=== PATIENT | male | born 1960 | race Caucasian/White ===

== ENCOUNTER → 2016-09-16 | Outpatient (CLI) | payer OTHER ==
[~2016-09-16] VITALS: Ht 180.3 cm; Wt 83.9 kg
[~2016-09-16] MED LIST: AMBIEN 10 MG TA10 MG PO; ATORVASTATIN CA80 MG PO; GRALISE600 MG PO; HYDROCODON-ACE1 EAC5 PO; HYDROCODON-ACE1 EAC7 PO; HYDROCODON-ACE1 EAC8 PO; HYDROCODON-ACE1 EACH PO; LIDODERM 5%1 PATCH TOP; LISINOPRIL5 MG PO; LYRICA 50 MG50 MG PO; MEDROLDOSEPACK PO; NEURONTIN 300300 M1 PO; NORVASC5 MG PO; XANAX 0.5 MG0.5 MG PO
--- NOTE | ~2016-09-16 | HPC ---
[facility] [place] [address] PAIN MANAGEMENT CONSULTATION Name: SANA CHAIREZ Room #: REG [facility] [id number] Admission: 09/16/16 Attend Phys: Lisa Gu MD Discharge: Date of : 62 Report #: [id number] THIS REPORT FOR: //name// CC: Chaz Gu DATE OF SERVICE: 09/16/2016 FOLLOWUP COMPLAINT: I just got back from [place] and I have to go to [place] tomorrow. FOLLOWUP HISTORY: The patient is a 55-year-old gentleman who has been followed in the pain clinic because of chronic pain involving his low back area. He suffers from lumbar radiculopathy. He has undergone epidural steroid injections in the past and found that these have been beneficial. At this juncture, he has just returned to the [place] from a work related trip. He is scheduled tomorrow to hit for [employer] for another extended amount of time. As you recall, he works with [employer] some other large [employer]. He finds that flying on the airplane is quite miserable and problematic given his back pain. He feels that use of hydrocodone and Gralise 600 mg daily is helpful. He would like to have these medications renewed. He will anticipate the possibility of an epidural steroid injection when he returns home. He has had no complications from his medications. PHYSICAL EXAMINATION: Blood pressure 128/98, pulse 72, respiratory rate 20, room air saturation is , height 5 feet 11 inches, weight 180 pounds. BMI is 25.8. The patient has pain and discomfort in the lower portion of his back with pain down in the "tailbone" area. He also has bilateral leg pain, which radiates down involving the L5-S1 distribution. He notes that sitting, standing and travel exacerbate his discomfort. He rates it as a 6/10 at this point. IMPRESSION: Lumbar radiculopathy, treated with epidural steroid injections in the past. PLAN: The patient is scheduled to leave for [place] tomorrow and will follow up in the near future for additional treatment. A script for Gralise 600 mg 1 p.o. q. day and hydrocodone 10/325 one p.o. up to 4 times per day has been written. He will call us if he has any problems with his medications. We would like to thank you for letting us participate in his care. We hope he continues to improve. By: [id number] Lisa Gu MD /fredi
[2016-09-16 11:01] VITALS: BP 128/98
== END | disposition home or self-care (01) ==
LOC: PAIN 07:05
DX: M54.16 Radiculopathy, lumbar region (principal); G89.29 Other chronic pain

== ENCOUNTER → 2017-01-01 | Outpatient (CLI) | payer OTHER ==
[~2017-01-01] VITALS: Ht 182.9 cm; Wt 85.2 kg
--- NOTE | ~2017-01-01 | HPC ---
[facility] [place] [address] PAIN MANAGEMENT CONSULTATION Name: SANA CHAIREZ Room #: REG DORIS Carleen#: [id number] Admission: 01/01/17 Attend Phys: Lisa Gu MD Discharge: Date of : 62 Report #: [id number] THIS REPORT FOR: //name// CC: Chaz Gu DATE OF SERVICE: 01/01/2017 FOLLOWUP COMPLAINT: Described been out of the country. I would like to give my medications and would get an injection in the future. FOLLOWUP HISTORY: The patient is a 56-year-old gentleman who has been seen in the pain clinic as you recall, he has lumbar radiculopathy. He undergoes on epidural steroid injections. They have been helpful. He has recently returned to the [place]. He was in [place]. He is somewhat time lagged/jet lagged at this juncture. He just arrived this morning. He has come to the pain clinic for medications. He is scheduled to live in the near future on another venture out of the country for his country ____. He still feels that Gralise 600 mg is quite helpful. He has had no complications with use of his medications. PHYSICAL EXAMINATION: Blood pressure 130/92, pulse 89, respiratory rate 16, room air saturation 97. Height 6 feet, weight 187 pounds, BMI is 25.5. Continues to have pain and discomfort, radiating down into tailbone area and into the L5-S1 distribution. IMPRESSION: History of lumbar radiculopathy treated with epidural steroid injections with improvement. RECOMMENDATION: The patient will follow up in the future after his work schedule allows. At that point, we will proceed with a lumbar epidural steroid injection to help control the pain and discomfort. We would like to thank you for letting us participate in his care. We hope he continues to improve. A script for Corwith one p.o. q.i.d., Gralise 600 mg at bedtime and Xopenex 10 mg at bedtime has been written. <ELECTRONICALLY SIGNED> By: Lisa Gu MD 01/15/17 0844 [id number] Lisa Gu MD /[facility]
[2017-01-01 10:52] VITALS: BP 130/92
== END | disposition home or self-care (01) ==
LOC: PAIN 07:23
DX: M54.16 Radiculopathy, lumbar region (principal)

== ENCOUNTER → 2017-03-24 | Outpatient (CLI) | payer OTHER ==
[~2017-03-24] VITALS: Ht 182.9 cm; Wt 86.1 kg
--- NOTE | ~2017-03-24 | HPC ---
[facility] [place] [address] PAIN MANAGEMENT CONSULTATION Name: SANA CHAIREZ Room #: REG DORIS Carleen#: [id number] Admission: 03/24/17 Attend Phys: Lisa Gu MD Discharge: Date of : 62 Report #: [id number] THIS REPORT FOR: //name// CC: Chaz Gu DATE OF SERVICE: 03/24/2017 FOLLOWUP COMPLAINT: "I just got back into the [place] and I am here for about 4 days. Had pain radiating down into my back, legs again." FOLLOWUP HISTORY: The patient is a 56-year-old gentleman who has been seen in the pain clinic. He suffers from lumbar radiculopathy. He experiences pain, which radiates down the posterior portion of his legs. [place]. At this juncture, he is having pain and discomfort radiating down to his lower back. He has experienced pain and discomfort, which he describes as 6/10. He frequently is on a plane, and somewhat in confined situations because of the small areas of most planes seats. He feels that his current medications are helpful. He would like to undergo another epidural steroid injection. He feels that the gabapentin and Corder are helpful. He is taking them as prescribed. PHYSICAL EXAMINATION: VITAL SIGNS: Blood pressure 130/92, pulse 89, respiratory rate 16, room air saturation 97%. HEENT: Unremarkable. NECK: Without JVD. HEART: Regular rate. ABDOMEN: Nontender. MUSCULATURE: Complains of some soreness in the lower extremity down in the posterior portion of his legs. Muscle strength is judged to be 5/5. NEUROLOGIC: Has a change in sensations in the L5-S1 with numbness and tingling in the L5-S1 distribution bilaterally. IMPRESSION: 1. History of lumbar radiculopathy, which improved with epidural steroid injections. 2. Lumbar radicular pain improved with use of Gralise with no complications. RECOMMENDATIONS: We discussed treatment options with the patient. We will continue with his current use of Gralise. We have discussed use of opioid medication and the possible complications, which could include addiction and tolerance. The patient is aware of these. He feels overall that these [address] [address] PAIN MANAGEMENT CONSULTATION Name: SANA CHAIREZ Room #: REG DORIS Durant#: [id number] Admission: 03/24/17 Attend Phys: Lisa Gu MD Discharge: Date of : 62 Report #: [id number] medications are helpful. He is not having any problems with them and is taking them as prescribed. He keeps them in a controlled environment. We talked about epidural steroid injection. Risks and benefits of the procedure were again reviewed. They could include but are not limited to infection, increased muscle soreness, headache, bleeding, and nerve trauma. The patient elects to proceed. PROCEDURE NOTE: The patient was placed in the prone position. Fluoroscopy was used to identify the L5-S1 area. This area had been sterilely prepped with Betadine and infiltrated with 0.25% bupivacaine. Total of 80 mg Depo-Medrol, 40 mg triamcinolone and 2 mL of 0.25% bupivacaine was injected. The patient tolerated the procedure well. A prescription for Ambien 10 mg at bedtime and Corder 10 mg 1 p.o. q.i.d. as well as gabapentin 600 mg daily has been written. The patient will call us if he has any problems with his medications. We would like to thank you for letting us participate in his care. We hope he continues to improve. <ELECTRONICALLY SIGNED> By: Lisa Gu MD 03/26/17 0806 [id number] [id number] Lisa Gu MD /[facility]
[2017-03-24 08:48] VITALS: BP 145/108
== END | disposition home or self-care (01) ==
LOC: PAIN 06:35
DX: M54.16 Radiculopathy, lumbar region (principal); G89.29 Other chronic pain; Z79.891 Long term (current) use of opiate analgesic; Z79.899 Other long term (current) drug therapy

== ENCOUNTER → 2017-10-22 | Outpatient (CLI) | payer OTHER ==
[~2017-10-22] VITALS: Ht 182.9 cm; Wt 87.7 kg
[~2017-10-22] MED LIST changes: +SINGULAIR 10 MG10 M1 PO
--- NOTE | ~2017-10-22 | HPC ---
[facility] [place] [address] [place] [address] PAIN MANAGEMENT CONSULTATION Name: SANA CHAIREZ Room #: REG DORIS Carleen#: [id number] Admission: 10/22/17 Attend Phys: Lisa Gu MD Discharge: Date of : 62 Report #: [id number] THIS REPORT FOR: //name// CC: Chaz Gu DATE OF SERVICE: 10/22/2017 FOLLOWUP COMPLAINT: "Here for medication renewal. I have just returned from [facility]. I am scheduled to leave tomorrow for [place]." FOLLOWUP HISTORY: The patient is a 56-year-old gentleman who has been followed in the Pain Clinic. 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 He has just returned on a "red-eye flight"; it is currently midnight in [facility]. He is feeling tired and sleepy. He is scheduled to leave on a flight to [place] in about 2 days. He finds that his medications of Gralise were helpful. Because the medication is to be taken in the evening, it has been somewhat difficult to stay on a regimen which is tolerable. He has stopped taking the Gralise because of the fluctuation in time zones in which he has been living. He feels that his Ambien medication and [place] are helpful. He would like to have these medications renewed. He will consider possibility of an epidural steroid injection in the future. The patient finds that the constant fluctuation from time zone is quite distressing. He is having difficulty remaining in his current job secondary to the chronic time zone changes. He is not sure that he can continue at this current pace in this job position. ALLERGIES: No known drug allergies. CURRENT MEDICATIONS: Singulair 10 mg at bedtime, Ambien 10 mg p.r.n., hydrocodone 10/325s one p.o. q. four hours; Gralise/gabapentin 600 mg with meals, the patient has truncated use of this medication secondary to the constant changing of his time zones; Lipitor 80 mg, alprazolam 0.5 mg b.i.d., and Norvasc 5 mg daily. PAIN CLINIC ASSESSMENT: 1. History of osteoarthritis: The patient has some arthritic changes in his low back. 2. Height 6 feet, weight 193 pounds, BMI is 26.2. 3. Vital signs: Blood pressure 139/93, pulse 93, respiratory rate is 16, room air saturation 97%. 4. Pain intensity: 7-8. 5. Fall risk: The patient has not fallen in the last 3 months. 6. Blood thinner: The patient is not on a blood thinning medication. 7. Hypertension: The patient is being treated for hypertension. [address] [address] PAIN MANAGEMENT CONSULTATION Name: CONTRERASSANA ADILIAMIRA Room #: REG CLI [facility]#: [id number] Admission: 10/22/17 Attend Phys: Lisa Gu MD Discharge: Date of : 62 Report #: [id number] 8. Opioid therapy greater than 6 weeks: The patient is receiving his opioid medications from one source, the Pain Clinic. 9. Risk assessment tool. 10. Opioid risk is low. 11. Functional assessment tool. 12. Drug use: The patient denies use of recreational drugs. 13. Tobacco: The patient has never smoked. 14. Alcohol: The patient occasionally uses alcoholic beverages. PHYSICAL EXAMINATION: GENERAL: The patient is a well-developed white male. He appears his stated age. He is alert and oriented x 3. His affect is appropriate. Speech is fluent. The patient does look sleepy. He states that he has just returned from [place] on a red-eye; it currently is midnight in [facility] which is where he came from. HEENT: Normocephalic, atraumatic. Extraocular eye muscles intact. Sclerae nonicteric. Mucous membranes are moist. Hearing is within normal limits. NECK: Without JVD or adenopathy. Good range of motion, flexion and extension, left and right lateral bending unremarkable. HEART: Regular rate. Normal S1, S2. ABDOMEN: Nontender. CHEST: Clear to auscultation, without rhonchi or rales. MUSCULOSKELETAL: Without significant scoliosis, kyphosis, or lordosis. Upper extremity muscle strength is judged to be 5/5 for the muscle groups. Bulk and symmetry is noted without sensory change. Sensory exam in the lower extremity shows some pain and discomfort radiating down into the patient's legs. He rates it as a 7/10. Muscle strength in the lower extremities judged to be 5/5. IMPRESSION: History of lumbar radicular pain, improves with epidural steroid injection. RECOMMENDATION: The patient is going to leave within the next 48 hours and go to [place]. At this juncture, he would like to have his medications renewed. He is holding off taking the gabapentin because he is unable to take it on a regular basis. He feels that sometimes this medication may make a change in his sensorium bit and feels that the [place] and Ambien are helpful. He would like to have these medications renewed. We will write for his medications. He will follow up in the near future. We would like to thank you for letting us participate in his care. We hope he continues to improve. By: [id number] MD rubio Roy
[2017-10-22 10:10] VITALS: BP 139/93
== END ==
LOC: PAIN 06:31
DX: M54.5 Low back pain (principal); Z79.899 Other long term (current) drug therapy

== ENCOUNTER → 2018-01-03 | Outpatient (CLI) | payer OTHER ==
[~2018-01-03] VITALS: Ht 182.9 cm; Wt 89.8 kg
[2018-01-03 10:23] VITALS: BP 171/108
== END ==
LOC: PAIN 07:12
DX: M54.5 Low back pain (principal); M79.606 Pain in leg, unspecified; M79.605 Pain in left leg; G89.29 Other chronic pain; M53.3 Sacrococcygeal disorders, not elsewhere classified; Z79.899 Other long term (current) drug therapy; Z79.891 Long term (current) use of opiate analgesic

== ENCOUNTER → 2018-02-23 | Outpatient (CLI) | payer OTHER ==
[~2018-02-23] VITALS: Ht 182.9 cm; Wt 90.7 kg
[2018-02-23 08:08] VITALS: BP 150/101
== END ==
LOC: PAIN 05:39
DX: M54.5 Low back pain (principal); M79.604 Pain in right leg; M79.605 Pain in left leg; G89.29 Other chronic pain; Z79.899 Other long term (current) drug therapy

== ENCOUNTER → 2018-03-23 | Outpatient (CLI) | payer OTHER ==
[~2018-03-23] VITALS: Ht 182.9 cm; Wt 91.2 kg
[~2018-03-23] MED LIST changes: +LOSARTAN POTAS100 MG PO; +XANAX1 MG PO
--- NOTE | ~2018-03-23 | HPC ---
[facility] [place] [address] PAIN MANAGEMENT CONSULTATION Name: SANA CHAIREZ Room #: REG DORIS Alvaro.#: [id number] Admission: 03/23/18 Attend Phys: Lisa Gu MD Discharge: Date of : 62 Report #: [id number] THIS REPORT FOR: //name// CC: Chaz Gu DATE OF SERVICE: 03/23/2018 CHIEF COMPLAINT: Here for an epidural injection. HISTORY: The patient is a 57-year-old gentleman who has been followed in the Pain Clinic because of chronic pain in the low back area as well as pain in his leg. As you may recall, works for [employer]. He flies international frequently. He has just returned to the [place]. He is just arriving home from a 30-hour trip. He is quite tired. He has returned to the Pain Clinic with a desire to undergo an epidural steroid injection. These have been helpful for him in the past. He rates his pain as a 7/10. He would like to proceed with an epidural steroid injection. Finds that his medications of hydrocodone and Ambien in conjunction with release continued to be helpful. ALLERGIES: No known drug allergies. CURRENT MEDICATIONS: Singulair 10 mg at bedtime, Ambien 10 mg p.r.n., hydrocodone 10/325 one p.o. 4-6 hours, Gralise/gabapentin 600 mg with meals, Lipitor 80 mg, alprazolam 0.5 mg b.i.d., and Norvasc 5 mg daily. PAIN CLINIC ASSESSMENT/PQRS: 1. History of osteoarthritis. The patient has some arthritic changes in the low back area. He is not being treated for rheumatoid arthritis. 2. Height 5 feet 6 inches, weight 201 pounds, BMI is 27.3. 3. Vital signs: Blood pressure 139/102, pulse 72, respiratory rate 16, room air saturation 95%. 4. Pain intensity 10/05. 5. Fall risk. The patient has not fallen in the last 3 months. 6. Blood thinner. The patient is not on a blood thinning medication. 7. Hypertension. The patient has been treated for hypertension. 8. Opioids greater than 6 weeks. The patient had received this medication from one source, the Pain Clinic. 9. Risk assessment tool, low for opioid use. 10. Functional assessment tool. 11. Recreational drug use. The patient denies use of recreational drugs. 12. Tobacco: The patient has never smoked. 13. Alcohol. The [place] [address] PAIN MANAGEMENT CONSULTATION Name: SANA CHAIREZ Room #: REG [facility] Carleen#: [id number] Admission: 03/23/18 Attend Phys: Lisa Gu MD Discharge: Date of : 62 Report #: [id number] PHYSICAL EXAMINATION: GENERAL: The patient is a well-developed, well-nourished white male. Appears his stated age. He is alert and oriented x 3. Affect is appropriate. Speech is fluent. HEENT: Normocephalic and atraumatic. Extraocular eye muscles intact. Sclerae nonicteric. The patient does looks sleepy. He has just gotten off the plane. He has been traveling for 30 hours. HEENT: Normocephalic and atraumatic. Extraocular eye muscles intact. Sclerae nonicteric. Mucous membranes are moist. NECK: Without adenopathy or JVD. Good motion. HEART: Regular rate. S1, S2. ABDOMEN: Nontender. Bowel sounds present. CHEST: Clear to auscultation without rhonchi or rales. MUSCULOSKELETAL: Without significant scoliosis, kyphosis or lordosis. The patient has pain and discomfort in lower extremity in the L5-S1 area with pain primarily on the left side in the L5-S1 dermatomal distribution. IMPRESSION 1. L5-S1 dermatomal radicular pain. 2. Hypertension. 3. Chronic traveling through time zones -- the patient feels that he may need to decrease traveling in the future. RECOMMENDATIONS: We discussed the treatment options with the patient. Risks and benefits of an epidural steroid injection were discussed. Possible complications of the procedure were reviewed. They include, but are not limited to infection, worsening of pain, no improvement in pain, bleeding, nerve damage and paralysis. The patient elects to proceed. PROCEDURE NOTE: The patient was assisted in getting on the examination table. Fluoroscopy using anterior, posterior as well as lateral viewing were implemented. The patient's back was sterilely prepped with a Betadine solution. A 0.25% bupivacaine using a midline approach in the left paramedian direction was implemented. A 17-gauge Tuohy with loss of resistance technique was used to gain access to the epidural space. There was no CSF, heme or paresthesia. Aspiration was negative. A total of 80 mg Depo-Medrol, 40 mg triamcinolone and 2 mL of 0.25% bupivacaine was injected. The patient tolerated the procedure well. There were no complications. A total of 11 seconds fluoroscopy time was used. The patient's pain decreased from 7-0 at the time of discharge. He will follow up in the future as needed. [facility] [address] [place] [address] PAIN MANAGEMENT CONSULTATION Name: SANA CHAIREZ Room #: [facility] [id number] Admission: 03/23/18 Attend Phys: Lisa Gu MD Discharge: Date of : 62 Report #: [id number] We would like to thank you for letting us participate in his care. We hope he continues to improve. By: 22 22 Lisa Gu MD /fredi
[2018-03-23 08:42] VITALS: BP 139/102
== END | disposition home or self-care (01) ==
LOC: PAIN 08:14
DX: M54.16 Radiculopathy, lumbar region (principal); G89.29 Other chronic pain; I10 Essential (primary) hypertension; Z79.891 Long term (current) use of opiate analgesic; Z79.899 Other long term (current) drug therapy

== ENCOUNTER → 2018-06-10 | Outpatient (CLI) | payer OTHER ==
[~2018-06-10] VITALS: Ht 182.9 cm; Wt 93.0 kg
[2018-06-10 10:50] VITALS: BP 108/78
--- NOTE | 2018-06-10 10:50 | NUR ---
Pain Clinic Assessment: 1. History of Osteoarthritis: Not Applicable History of Rheumatoid Arthritis: Not Applicable 2. Height: 6 ft. 0 in. 182.9 cm. Weight: 205.0 lb. oz. 92.988 kg. Patient's BMI: 27.8 3. Vital Signs: BP: 108/78 Pulse: 77 Resp: 18 Temp: 02 Sat: 96 ECG Mon: 4. Pain Intensity: 7 5. Fall Risk: Dizziness: Needs help standing or walking: Fallen in the last 3 months: Fall risk comments: 6. Patient on Blood Thinner: None 7. History of Hypertension: Y 8. Opioid Therapy greater than 6 weeks: Y Opiate Contract Signed: 09/19/15 9. Risk Assessment Tool Provided: Opioid Risk Tool 10. Functional Assessment Tool: HIGH RISK 11. Recreational Drug Use: Never Drug Type: Tobacco Use: Never Smoker Tobacco Type: Amount or Packs/day: How Many Years: Alcohol Use: Yes Frequency: Quant:
--- NOTE | 2018-06-22 08:28 | HPC ---
[facility] [address] [place] [address] PAIN MANAGEMENT CONSULTATION Name: SANA CHAIREZ Room #: REG DORIS Alvaro.#: [id number] Admission: 06/10/18 ������������������ Attend Phys: Lisa Gu MD Discharge: ������������������ Date of : 62 Report #: [id number] THIS REPORT FOR: //name// CC: Chaz Gu DATE OF SERVICE: 06/10/2018 PRIMARY CARE PHYSICIAN: Chaz Meade Jr., MD and Magan Madrigal. HISTORY: The patient is a 57-year-old gentleman who has been followed in the pain clinic. Continues to have back pain that is helped with epidural steroid injections as well as with medications. 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 He finds that all of his traveling continues to be quite hard on his body. He feels that the epidural steroid injections have been beneficial. He feels that his medications are helpful. He is contemplating changing jobs. He feels that he is finding it more and more difficult to continue with his current pace. He has returned today for renewal of his medications. He feels that they are working well. He continues to take them as directed. ALLERGIES: No known drug allergies. CURRENT MEDICATIONS: Singulair 10 mg at bedtime, Ambien 10 mg p.r.n., hydrocodone 10/325 one p.o. q. 4-6 hours, Gralise 600 mg with meals, Lipitor 80 mg, alprazolam 0.5 mg b.i.d., Norvasc 5 mg. PAIN CLINIC ASSESSMENT/PQRS: 1. History of osteoarthritis. The patient has some arthritic changes in his low back area. He has not been treated for rheumatoid arthritis. 2. Height 5 feet 6 inches, weight 205 pounds, BMI is 27.8. 3. Vital signs: Blood pressure 108/78, pulse 77, respiratory rate 18, room air saturation 96%. 4. Pain intensity 10/05. 5. Fall history: The patient has not fallen in the last 3 months. 6. Blood thinner. The patient is not on a blood thinning medication. 7. Hypertension. The patient is being treated for hypertension. 8. Opioids greater than 6 weeks. The patient received medication from one source, pain clinic. 9. Risk assessment tool, low for opioid risk. 10. Functional assessment tool. 11. Recreational drug use. The patient denies use of recreational drugs. 12. Tobacco. The patient does not smoke. 13. Alcohol. The patient [place] [address] PAIN MANAGEMENT CONSULTATION Name: SAAN CHAIREZ [facility] [id number] Admission: 06/10/18 ������������������ Attend Phys: Lisa Gu MD Discharge: ������������������ Date of : 62 Report #: [id number] PHYSICAL EXAMINATION: GENERAL: The patient is a well-developed, well-nourished white male. Appears his stated age. He is alert and oriented x 3. His affect is appropriate. Speech is fluent. ENT is normal. HEENT: Normocephalic, atraumatic. Extraocular eye muscles intact. The patient's eyes are low red. He feels he is still tired and recuperating from his travel. NECK: Supple without adenopathy or JVD. Good range of motion. HEART: Regular rate. S1, S2. ABDOMEN: Nontender. Bowel sounds present. CHEST: Clear to auscultation without rhonchi or rales. MUSCULOSKELETAL: Without significant scoliosis, kyphosis or lordosis. The patient has pain and discomfort in his lower extremity at the L4-L5 distribution with pain that radiates down in this dermatomal distribution. IMPRESSION: 1. L5-S1 dermatomal radicular pain. 2. Hypertension. 3. Chronic sleeping difficulty secondary to traveling to so many time zones. RECOMMENDATIONS: We discussed treatment options with the patient. At this juncture, we will continue with his medications. He feels that things are going reasonably well. He would like to continue with his medications. He is contemplating changing his job. Feels that at age 57 he is having more difficulty with keeping up with this position. His mother is in a nursing setting. She has dementia and is no longer recognizing him. A script for his medications has been written. Ambien 10 mg at bedtime, Barbeau 10/325 one p.o. q.i.d. have been written. The patient will call us if he has any concerns. We would like to thank you for letting us participate in his care. We hope he continues to improve. ��������������������������������������������� <ELECTRONICALLY SIGNED> ���������������������������������������� By: Lisa Gu MD ��������������������������������������������� 06/22/18 0828 0817 1601 Lisa Gu MD /JOSE G
== END ==
LOC: PAIN 06:51
DX: M54.17 Radiculopathy, lumbosacral region (principal); I10 Essential (primary) hypertension; G47.00 Insomnia, unspecified; Z79.899 Other long term (current) drug therapy

== ENCOUNTER → 2018-08-10 | Outpatient (CLI) | payer OTHER ==
[~2018-08-10] VITALS: Ht 182.9 cm; Wt 93.4 kg
--- NOTE | ~2018-08-10 | HPC ---
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 He works for [employer]. There has been a new terrace put in place. 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 He recalls standing when getting off the plane. While lifting his luggage, he felt a pop in his leg. Did note some increased pain in his knee. Over the last few days, he has noted some increased pain and discomfort. He has noticed some swelling from the ankle to the mid portion of his leg. He is walking with a very antalgic gait. States that he has spoken with an Orthopedic doctor. He is scheduled to undergo an MRI of his knee. He would like to have his medications renewed. [place]. He feels that his medications continue to be helpful and would like to have them renewed. ALLERGIES: No known drug allergies. CURRENT MEDICATIONS: Singulair 10 mg at bedtime, Ambien 10 mg p.r.n., hydrocodone 10/325 one p.o. every 4-6 hours, Gralise/gabapentin 600 mg with meals, Lipitor 80 mg, alprazolam 0.5 mg b.i.d., Norvasc 5 mg daily. PAIN CLINIC ASSESSMENT/OSTEOARTHRITIS: 1. The patient has some arthritic changes in his low back. He is not being treated for rheumatoid arthritis. 2. Height 6 feet, weight 206 pounds, and the BMI is 27.9. 3. Vital Signs: Blood pressure 142/106, pulse 85, respiratory rate 16, room air saturation is 95%. 4. Pain intensity 6/10. 5. Fall risk. The patient has not fallen in the last 3 months. 6. Blood thinner. The patient is not on a blood thinning medication. 7. Hypertension. The patient has been treated for hypertension. 8. Opioid greater than 6 weeks. The patient receives medication from one source, the pain clinic. 9. Risk assessment tool, low for opioid use. [address] [address] PAIN MANAGEMENT CONSULTATION Name: SANA CHAIREZ [id number] Admission: 08/10/18 ������������������ Attend Phys: Lisa Gu MD Discharge: ������������������ Date of : 62 Report #: [id number] 10. Functional assessment tool, . 11. Recreational drug use. The patient denies use of recreational drug use. 12. Tobacco: The patient has never smoked. 13. Alcohol. The patient drinks about 6 beverages weekly. PHYSICAL EXAMINATION: GENERAL: The patient is a well-developed, well-nourished white male. Appears his stated age. He is alert and oriented x 3. His affect is appropriate. Speech is fluent. HEENT: Normocephalic, atraumatic. Extraocular eye muscles intact. Sclerae nonicteric. Mucous membranes are moist. NECK: Without adenopathy or JVD. HEART: Regular rate. S1, S2. ABDOMEN: Nontender. Bowel sounds present. CHEST: Clear to auscultation. MUSCULOSKELETAL: Without significant scoliosis, kyphosis or lordosis. The patient has pain in the lower extremity. He has been experiencing pain in the right lower extremity over the last few days. He notes increased swelling and discomfort. He has some pain in the lateral portion of his leg as well as in the posterior portion of his knee. IMPRESSION: 1. History of lumbar radiculopathy, L5-S1, stable at this juncture. 2. New swelling in the right lower extremity. 3. Hypertension. 4. Chronic pain, traveling through time zones. RECOMMENDATIONS: We discussed treatment options with the patient. At this juncture, he is having swelling in his leg. He does fly frequently. The possibility exists of a blood clot in his leg. We will have the patient undergo ultrasound for evaluation. He is scheduled to go to [place] within the next few days. If he does have a blood clot, he probably would not be able to go to [place]. The patient was given a script to undergo ultrasound in the radiology today. He will then follow up with his Ortho doctor in regards to his knee. A script for his medications has been written. He will continue with the medications as prescribed. He will call us if he has any concerns. 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 We would like to thank you for letting us participate in his care. We hope he continues to improve. ��������������������������������������������� ���������������������������������������� By: ��������������������������������������������� [id number] MD LUIS ALBERTO Roy
[2018-08-10 10:12] VITALS: BP 142/106
--- NOTE | 2018-08-10 10:19 | NUR ---
Pain Clinic Assessment: 1. History of Osteoarthritis: Not Applicable History of Rheumatoid Arthritis: Not Applicable 2. Height: 6 ft. 0 in. 182.9 cm. Weight: 206.0 lb. oz. 93.441 kg. Patient's BMI: 27.9 3. Vital Signs: BP: 142/106 Pulse: 85 Resp: 16 Temp: 02 Sat: 95 ECG Mon: 4. Pain Intensity: 6 5. Fall Risk: Dizziness: N Needs help standing or walking: N Fallen in the last 3 months: N Fall risk comments: 6. Patient on Blood Thinner: None 7. History of Hypertension: Y 8. Opioid Therapy greater than 6 weeks: Y Opiate Contract Signed: 09/19/15 9. Risk Assessment Tool Provided: Gualberto 10. Functional Assessment Tool: 11. Recreational Drug Use: Never Drug Type: Tobacco Use: Never Smoker Tobacco Type: Amount or Packs/day: How Many Years: Alcohol Use: Yes Frequency: Weekly Quant: 6
== END ==
LOC: ULTRA 09:59 → PAIN 09:59
DX: M71.21 Synovial cyst of popliteal space [Baker], right knee (principal); M25.461 Effusion, right knee; M54.16 Radiculopathy, lumbar region; G89.29 Other chronic pain; R60.9 Edema, unspecified; I10 Essential (primary) hypertension; Z79.899 Other long term (current) drug therapy

== ENCOUNTER → 2018-12-16 | Outpatient (CLI) | payer OTHER ==
[~2018-12-16] VITALS: Ht 182.9 cm; Wt 88.9 kg
[~2018-12-16] MED LIST changes: +VOLTAREN GEL 1100 G1 TOP
[2018-12-16 10:03] VITALS: BP 130/96
--- NOTE | 2018-12-16 10:11 | NUR ---
Pain Clinic Assessment: 1. History of Osteoarthritis: Not Applicable History of Rheumatoid Arthritis: Not Applicable 2. Height: 6 ft. 0 in. 182.9 cm. Weight: 196.0 lb. oz. 88.905 kg. Patient's BMI: 26.6 3. Vital Signs: BP: 130/96 Pulse: 78 Resp: 16 Temp: 02 Sat: 96 ECG Mon: 4. Pain Intensity: 6 NOW 8-9 AT HS 5. Fall Risk: Dizziness: N Needs help standing or walking: N Fallen in the last 3 months: N Fall risk comments: 6. Patient on Blood Thinner: None 7. History of Hypertension: Y 8. Opioid Therapy greater than 6 weeks: Y Opiate Contract Signed: 09/19/15 9. Risk Assessment Tool Provided: Gualberto 10. Functional Assessment Tool: 11. Recreational Drug Use: Never Drug Type: Tobacco Use: Never Smoker Tobacco Type: Amount or Packs/day: How Many Years: Alcohol Use: Yes Frequency: Quant:
--- NOTE | 2019-01-06 08:26 | HPC ---
[facility] [address] [place] [address] PAIN MANAGEMENT CONSULTATION Name: SANA CHAIREZ Room #: REG DORIS Alvaro.#: [id number] Admission: 12/16/18 Attend Phys: Lisa Gu MD Discharge: Date of : 62 Report #: [id number] THIS REPORT FOR: //name// CC: Chaz Gu DATE OF SERVICE: 12/16/2018 CHIEF COMPLAINT: Here for renewal of medication. HISTORY: The patient is a 58-year-old gentleman who has been followed in the pain clinic. As you recall, he has chronic pain involving his low back and has had some lumbar radicular pain. Epidural steroid injections in the past have been helpful. He does have a quite demanding life. He works for [employer]. 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 He has been having some pain with his knee. He has been evaluated and possibly found to have a Romo's cyst. He also states that there might be a torn meniscus in his knee. Evaluation in the past have been negative for deep venous thrombosis. Pain continues to be quite problematic. ALLERGIES: No known drug allergies. CURRENT MEDICATIONS: Singulair 10 mg at bedtime, Ambien 10 mg p.r.n., hydrocodone 10/325 one p.o. q.4-6 hours, Gralise/gabapentin 600 mg with meals, Lipitor 80 mg, alprazolam 0.5 mg b.i.d., and Norvasc 5 mg daily. PAIN CLINIC ASSESSMENT/PQRS: 1. Osteoarthritis. The patient has some arthritic changes in his low back area. He is not being treated for rheumatoid arthritis. 2. Height 6 feet, weight 196 pounds, BMI is 26.6. 3. Vital signs: Blood pressure 130/96, pulse 78, respiratory rate 16, room air saturation 96%. 4. Pain intensity 6/10, now and 8-9/10 at bedtime. 5. Fall history: The patient has not fallen in the last 3 months. 6. Blood thinner. The patient is not on a blood thinning medication. 7. Hypertension. The patient is being treated for hypertension. 8. Opioids greater than 6 weeks. The patient receives medication from one source the pain clinic. 9. Risk assessment tool, low for opioid use. 10. Functional assessment tool . 11. Recreational drugs. The patient denies use of recreational drugs. 12. Tobacco: The patient has never smoked. 13. Alcohol: The patient occasionally drinks alcoholic beverages. [address] [address] PAIN MANAGEMENT CONSULTATION Name: SANA CHAIREZ Room #: REG CLSam Durant#: [id number] Admission: 12/16/18 Attend Phys: Lisa Gu MD Discharge: Date of : 62 Report #: [id number] PHYSICAL EXAMINATION: GENERAL: The patient is a well-developed, well-nourished white male. Appears his stated age. He is alert and oriented x 3. His affect is appropriate. Speech is fluent. HEENT: Normocephalic, atraumatic. Extraocular eye muscles intact. Sclerae nonicteric. Mucous membranes are moist. NECK: Without adenopathy or JVD. HEART: Regular rate. S1, S2. ABDOMEN: Nontender. Bowel sounds present. CHEST: Clear to auscultation. MUSCULOSKELETAL: Without significant scoliosis, kyphosis, or lordosis. Upper extremity muscle strength is judged to be 5/5 for the major muscle groups in the upper extremity. The patient has some pain and discomfort in the right lower extremity. Notes that this is quite problematic and painful. Has difficulty walking. Notes that there appears at times to be swelling in the lower leg. Swelling is primarily below the knee. He finds that this sometimes waxes and wanes. Circumference of the right calf 15 and approximately 3/4 inches and the left calf approximately 15 inches. The patient has some pain and soreness in the posterior portion of his right knee. IMPRESSION: 1. Right knee pain, possible history of Romo's cyst or meniscus tear. 2. History of lumbar radiculopathy, L5-S1, stable at this juncture. 3. Hypertension. 4. Chronic pain, which is exacerbated while traveling through many time zones. RECOMMENDATIONS: We discussed treatment options with the patient. At this juncture, we will continue with his medications. A script for renewal of his medications has been written. He will continue with the hydrocodone 10 mg 1 p.o. q.i.d. p.r.n. for pain. He will also continue with Ambien 10 mg at bedtime to help with sleep. He finds that Voltaren gel to the upper extremities has been helpful and helping control some of the upper extremity pain and discomfort. He may try the use of Voltaren gel to the posterior portion of his right leg. We would like to thank you for letting us participate in his care. We hope he continues to improve. <ELECTRONICALLY SIGNED> By: Lisa Gu MD 01/06/19 0826 [id number] Lisa Gu MD /PMT
== END ==
LOC: PAIN 06:50
DX: M54.16 Radiculopathy, lumbar region (principal); I10 Essential (primary) hypertension; M25.561 Pain in right knee; Z79.899 Other long term (current) drug therapy

== ENCOUNTER → 2019-02-22 | Outpatient (CLI) | payer OTHER ==
[~2019-02-22] VITALS: Ht 182.9 cm; Wt 91.6 kg
[~2019-02-22] MED LIST changes: +WELLBUTRIN XL150 MG PO
--- NOTE | ~2019-02-22 | HPC ---
[facility] [place] [address] PAIN MANAGEMENT CONSULTATION Name: SANA CHAIREZ Room #: REG DORIS Carleen#: [id number] Admission: 02/22/19 Attend Phys: Lisa Gu MD Discharge: Date of : 62 Report #: [id number] THIS REPORT FOR: //name// CC: Chaz Gu DATE OF SERVICE: 02/22/2019 CHIEF COMPLAINT: Low back pain down in the right leg. HISTORY: The patient is a 58-year-old gentleman who has been followed in the Pain Clinic because of chronic pain. 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 He continues to have pain and discomfort, which is problematic. He has had some problem with his knees. He has had pain in the low back area and has undergone epidural steroid injections and gleaned benefits from these. He returns today indicating that his pain has increased. He rates it as an 8/10. It involves the low back. It radiates down in the lower portion of his right back and into the right leg. Notes that the pain is exacerbated when he is sitting. Notes it improves somewhat with repositioning. He would like to proceed with an epidural steroid injection, which has been helpful in the past. ALLERGIES: No known drug allergies. CURRENT MEDICATIONS: Singulair 10 mg at bedtime, Ambien 10 mg, hydrocodone 10/325 one p.o. q. 4-6 hours, Gralise/gabapentin 600 mg with meals, Lipitor 80 mg, alprazolam 0.5 mg b.i.d., Norvasc 5 mg. PAIN CLINIC ASSESSMENT/PQRS: Osteoarthritis. The patient has some arthritic changes in his low back. He is not being treated for rheumatoid arthritis. PHYSICAL EXAMINATION: GENERAL: The patient is a well-developed, well-nourished white male. Appears his stated age. He is alert and oriented x 3. His affect is appropriate. Speech is fluent. HEENT: Normocephalic, atraumatic. Extraocular eye muscles intact. Sclerae nonicteric. Mucous membranes are moist. NECK: Without adenopathy or JVD. HEART: Regular rate. ABDOMEN: Nontender. LUNGS: Generally clear to auscultation. MUSCULOSKELETAL: Without significant scoliosis, kyphosis or lordosis. The patient has pain and discomfort radiating down in the L5-S1 area of his right leg. Notes some numbness, tingling and weakness associated with this. IMPRESSION: [facility] [address] [place] [address] PAIN MANAGEMENT CONSULTATION Name: SANA CHAIREZ Room #: REG CLI [facility]#: [id number] Admission: 02/22/19 Attend Phys: Lisa Gu MD Discharge: Date of : 62 Report #: [id number] 1. Right lower extremity pain in the L5-S1 area. 2. History of hypertension. 3. Chronic pain exacerbated while traveling through many times zones. 4. 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 RECOMMENDATIONS: We discussed treatment options with the patient. Risks and benefits of an epidural steroid injection were discussed. Possible complications of the procedure, which could include but are not limited to infection, worsening pain, no improvement in pain, nerve damage, spinal headache were discussed with the patient elects to proceed. PROCEDURE NOTE: The patient was taken to the procedure area. He was then assisted in getting on the examination table. His back was sterilely prepped with a Betadine solution at the L5-S1 area. A 0.25% bupivacaine was infiltrated into this area to numb it. A 17-gauge Tuohy with loss of resistance technique was then used to gain access at the L5-S1 area. Aspiration was negative. A total of 80 mg Depo-Medrol, 40 mg triamcinolone and 2 mL of 0.25% bupivacaine was injected. The patient's pain decreased from 8-0 at the time of discharge. A script for renewal of his medications will be written when he needs them. We would like to thank you for letting us participate in his care. We hope he continues to improve. By: [id number] Lisa Gu MD /fredi
[2019-02-22 08:08] VITALS: BP 120/75
--- NOTE | 2019-02-22 08:26 | NUR ---
Pain Clinic Assessment: 1. History of Osteoarthritis: SPINE History of Rheumatoid Arthritis: DENIES 2. Height: 6 ft. 0 in. 182.9 cm. Weight: 202.0 lb. oz. 91.627 kg. Patient's BMI: 27.4 3. Vital Signs: BP: 120/75 Pulse: 79 Resp: 20 Temp: 02 Sat: 97 ECG Mon: 4. Pain Intensity: 8 5. Fall Risk: Dizziness: N Needs help standing or walking: N Fallen in the last 3 months: Y Fall risk comments: 6. Patient on Blood Thinner: None 7. History of Hypertension: Y 8. Opioid Therapy greater than 6 weeks: Y Opiate Contract Signed: 09/19/15 9. Risk Assessment Tool Provided: 9 HIGH RISK 10. Functional Assessment Tool: 11. Recreational Drug Use: Never Drug Type: Tobacco Use: Never Smoker Tobacco Type: Amount or Packs/day: How Many Years: Alcohol Use: Yes Frequency: Daily Quant: BEER
== END | disposition home or self-care (01) ==
LOC: PAIN 02-14 12:11
DX: M54.5 Low back pain (principal); G89.29 Other chronic pain; Z98.890 Other specified postprocedural states; Z79.899 Other long term (current) drug therapy; Z79.891 Long term (current) use of opiate analgesic

== ENCOUNTER → 2019-03-15 | Outpatient (CLI) | payer OTHER ==
[~2019-03-15] VITALS: Ht 182.9 cm; Wt 90.3 kg
[2019-03-15 10:21] VITALS: BP 164/112
--- NOTE | 2019-03-15 10:25 | NUR ---
Pain Clinic Assessment: 1. History of Osteoarthritis: SPINE History of Rheumatoid Arthritis: DENIES 2. Height: 6 ft. 0 in. 182.9 cm. Weight: 199.0 lb. oz. 90.266 kg. Patient's BMI: 27.0 3. Vital Signs: BP: 164/112 Pulse: 109 Resp: 18 Temp: 02 Sat: 96 ECG Mon: 4. Pain Intensity: 5 5. Fall Risk: Dizziness: N Needs help standing or walking: N Fallen in the last 3 months: N Fall risk comments: 6. Patient on Blood Thinner: None 7. History of Hypertension: Y 8. Opioid Therapy greater than 6 weeks: Y Opiate Contract Signed: 09/19/15 9. Risk Assessment Tool Provided: 9 HIGH RISK 10. Functional Assessment Tool: 11. Recreational Drug Use: Never Drug Type: Tobacco Use: Never Smoker Tobacco Type: Amount or Packs/day: How Many Years: Alcohol Use: Yes Frequency: Quant:
--- NOTE | 2019-03-28 14:24 | HPC ---
[facility] [place] [place] [address] PAIN MANAGEMENT CONSULTATION Name: SANA CHAIREZ Room #: REG DORIS PaulaBorisSadieBoris#: [id number] Admission: 03/15/19 Attend Phys: Lisa Gu MD Discharge: Date of : 62 Report #: [id number] THIS REPORT FOR: //name// CC: Chaz Gu DATE OF SERVICE: 03/15/2019 CHIEF COMPLAINT: Have returned for medication renewal. The epidural injection has helped. HISTORY: The patient is a 58-year-old gentleman who has been followed in the pain clinic. As you recall, he has chronic back pain. He was seen in January. He underwent an epidural steroid injection in the low back area. He has found these beneficial in the past. He has noticed that his pain has improved since the last injection. He has returned today for renewal of his medications. He has had no complications from the procedure. He continues to work for [employer]. He is going to [place] in the near future. Again, these long flights on airplanes can be problematic and exacerbate his pain and discomfort. ALLERGIES: No known drug allergies. CURRENT MEDICATIONS: Singulair 10 mg at bedtime, Ambien 10 mg, hydrocodone 10/325 one p.o. 4-6 hours p.r.n./Gralise 600 mg with meals, Lipitor 80 mg, alprazolam 0.5 mg b.i.d., Norvasc 5 mg. PAIN CLINIC ASSESSMENT AND PQRS: 1. Osteoarthritis. The patient has some arthritic changes in his back. He has some arthritic change in his knee. He is not being treated for rheumatoid arthritis. 2. Height 6 feet 0, weight 199 pounds, BMI is 27. 3. Vital Signs: Blood pressure 164/112, pulse 109, respiratory rate 18, room air saturation 96%. 4. Pain intensity 5/10. 5. Fall history: The patient has not fallen in the last 3 months. 6. Blood thinner. The patient is not on a blood thinning medication. 7. Hypertension. The patient is being treated for hypertension. 8. Opioids greater than 6 weeks. The patient received medications from one source the pain clinic. 9. Risk assessment tool, moderate for opioid use. 10. Functional assessment tool . 11. Recreational drugs. Denies use of recreational drugs. 12. Tobacco: The patient has never smoked. 13. Alcohol: The patient occasionally drinks alcoholic beverages. [facility] [address] [place] [address] PAIN MANAGEMENT CONSULTATION Name: SANA CHAIREZ Room #: REG CLI [facility]#: [id number] Admission: 03/15/19 Attend Phys: Lisa Gu MD Discharge: Date of : 62 Report #: [id number] PHYSICAL EXAMINATION: GENERAL: The patient is a well-developed, well-nourished white male. Appears his stated age. He is alert and oriented x 3. His affect is appropriate. Speech is fluent. HEENT: Normocephalic, atraumatic. Extraocular eye muscles intact. Sclerae nonicteric. NECK: Without adenopathy or JVD. HEART: Regular rate. ABDOMEN: Nontender. LUNGS: Clear to auscultation. MUSCULOSKELETAL: Without significant scoliosis, kyphosis or lordosis. The patient has improved pain in the lower portion of his back and has less pain in the L5-S1 dermatomal distribution of his right leg. IMPRESSION: 1. Right lower extremity pain improved after the last epidural steroid injection. 2. History of hypertension. 3. Chronic pain exacerbated by his travel to different time zones. 4. Chronic pain treated with use of opioids to help complicated medical regimen. RECOMMENDATIONS: We discussed treatment options with the patient. He will continue with his medications. He feels that the medications are helpful. He is aware that 70,000 people last year as a result of overdosing of medications. He is keeping his medications in a guarded area. He is aware that these medications can become less effective as time progresses because of development of tolerance. He feels medications are working well. He keeps his medications in a guarded area. He will continue with the medications as prescribed. The patient will take hydrocodone 10 mg one p.o. 4-6 hours p.r.n. He will also continue with the Ambien 10 mg at bedtime. The patient uses Voltaren gel p.r.n. He will call us if he has any concerns. We would like to thank you for letting us participate in his care. We hope he continues to improve. <ELECTRONICALLY SIGNED> By: Lisa Gu MD 03/28/19 1424 [id number] [id number] Lisa Gu MD /fredi
== END ==
LOC: PAIN 03-14 11:01
DX: M79.604 Pain in right leg (principal); I10 Essential (primary) hypertension; G89.29 Other chronic pain

== ENCOUNTER → 2019-06-21 | Outpatient (CLI) | payer BC ==
[~2019-06-21] VITALS: Ht 182.9 cm; Wt 94.3 kg
[~2019-06-21] MED LIST changes: +CARVEDILOL25 MG PO
[2019-06-21 09:41] VITALS: BP 124/76
--- NOTE | 2019-06-21 09:52 | NUR ---
Pain Clinic Assessment: 1. History of Osteoarthritis: SPINE History of Rheumatoid Arthritis: DENIES 2. Height: 6 ft. 0 in. 182.9 cm. Weight: 207.8 lb. oz. 94.258 kg. Patient's BMI: 28.2 3. Vital Signs: BP: 124/76 Pulse: 82 Resp: 14 Temp: 02 Sat: 96 ECG Mon: 4. Pain Intensity: 8 5. Fall Risk: Dizziness: N Needs help standing or walking: N Fallen in the last 3 months: N Fall risk comments: 6. Patient on Blood Thinner: None 7. History of Hypertension: Y 8. Opioid Therapy greater than 6 weeks: Y Opiate Contract Signed: 09/19/15 9. Risk Assessment Tool Provided: 9 HIGH RISK 10. Functional Assessment Tool: 11. Recreational Drug Use: Never Drug Type: Tobacco Use: Never Smoker Tobacco Type: Amount or Packs/day: How Many Years: Alcohol Use: Yes Frequency: Weekly Quant: 8-12
--- NOTE | 2019-06-22 09:19 | HPC ---
[facility] [place] [address] PAIN MANAGEMENT CONSULTATION Name: SANA CHAIREZ Room #: REG DORIS Carleen#: [id number] Admission: 06/21/19 Attend Phys: Melba Hemphill Discharge: Date of : 62 Report #: [id number] THIS REPORT FOR: cc: Chaz Meade Jr, MD, Jr, Billy B. MD Hocker, Amanda CNS ~ DATE OF SERVICE: 06/21/2019 CHIEF COMPLAINT: Lumbar radiculopathy. HISTORY OF PRESENT ILLNESS: This is a 58-year-old gentleman who returns to the pain clinic today for refill of his medication. Today, he is reporting a pain score of 8/10, some days he reports a pain score 5/10. He states that his lower back continues to get worse. He is going to see the neurosurgeon tomorrow to try and schedule an appointment for surgery. He knows it is a COVID virus has shutdown elective surgeries. He feels like it will probably be August or September before he is allowed to have surgery. Today, he reports his pain radiates from his lower back down his right leg, having significant numbness and sharp pain. It is worse with sitting, but better with his medications as well as repositioning. He reports the epidural that Dr. 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 The patient is here today for his medications. He did tell us that he flew from [place] to [place] back to [place] on the 05/25/2019 and 05/26/2019. At one point, he reported to the nurse that he recently flown through [place], which is a hot spot for the COVID virus. We have then again talked to him. He reiterated again it was the 05/25/2019 and 05/26/2019. We have wearing him in a mask. He has not had any COVID symptoms per his report. He has been home this past month and has been healthy, continues to be asymptomatic for any COVID symptoms. ALLERGIES: No known drug allergies. CURRENT LIST OF MEDICATIONS: Carvedilol, Ambien, hydrocodone 10/325 q.i.d., losartan, and alprazolam. PQRS: 1. He has osteoarthritic changes in his lumbar spine and knees. Denies any rheumatoid arthritis. 2. Height is 6 feet, weight is 207, and BMI is 28. 3. Vital Signs: 124/76, pulse is 82, respirations 14, oxygen sat is 96. 4. Pain score is 5-8. 5. Denies dizziness, does not need help walking or standing, has not fallen in the last 3 months. [facility] [address] [address] PAIN MANAGEMENT CONSULTATION Name: SANA CHAIREZ Room #: REG CLSam Durant#: [id number] Admission: 06/21/19 Attend Phys: Melba Hemphill Discharge: Date of : 62 Report #: [id number] 6. The patient is not on any blood thinners, does have history of hypertension. 7. Opioid therapy is greater than 6 weeks; therefore, an opioid signed contract is on the chart. Risk assessment tool is high. Functional assessment is 27/70. 8. Recreational drug use, he denies. He is not a smoker and occasionally drinks alcohol. According to the prescription monitoring system, the patient is due to fill his medications soon. Filling them most recently on the 05/09/2019. According to the CDC guidelines, his morphine mEq is 40 MMEs per day. PHYSICAL EXAMINATION: GENERAL: This is a well-developed, well-nourished white gentleman who appears his stated age. He is alert and orientated. HEENT: Normocephalic, atraumatic. Extraocular eye muscles are intact. Mucous membranes are moist. NECK: Without adenopathy or JVD. MUSCULOSKELETAL: He is without significant scoliosis, kyphosis or lordosis. He has pain that radiates from his lumbar spine down the L5-S1 dermatomal distribution of his right leg, significant numbness. He walks with a slightly antalgic gait. IMPRESSION: 1. Right lower extremity pain. 2. Lumbar radiculopathy. 3. Hypertension. 4. Chronic pain treated with opioids under medication management. We reviewed the fact that opiate medications are being used to provide analgesia adequate to support activities of daily living, not attempting to achieve a specific pain score on the 0-10 Visual Analog Scale. The current opiate medications are providing sufficient analgesia to allow the patient to participate in activities of daily living. The patient is not exhibiting any aberrant behavior suggestive of drug diversion. The patient is not having any adverse reactions to medications. The patient is not suffering from daytime somnolence or mental acuity changes. The patient is managing opiate-induced constipation with appropriate [id number] agents and dietary considerations. The patient was counseled on concern for caution with operating a motor vehicle while using opiate medications. PLAN: 1. We discussed treatment options with the patient today. The patient continues to take his hydrocodone 10/325 up to 4 times a day. He finds this is beneficial in controlling his low back pain, though he is seeing the neurosurgeon tomorrow to hopefully schedule a surgery in the near future. I explained to the patient postoperatively Dr. Cast will manage his postoperative medications. After that, we will continue his medications and [facility] [address] [place] [address] PAIN MANAGEMENT CONSULTATION Name: SANA CHAIREZ Room #: REG CL Carleen#: [id number] Admission: 06/21/19 Attend Phys: Melba Hemphill Discharge: Date of : 62 Report #: [id number] hopefully be able to wean him off his medicines once his surgery has been completed gradually over the next 6 months to year as his pain decreases. The patient verbalizes understanding. 2. We discussed medications of his opioids during this time of COVID-19 and we are unsure if that will be limited supply of opioids going forward, I encouraged him to take less on days that he is able to, increase in the amount that he has at home in case there is a shortage of medication. He does verbalize understanding. 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 3. Again, the patient recently traveled in the last month to a hot spot of [place]. He reports he has no COVID symptoms. He is wearing a mask today as well as the staff and has no fever. He remains asymptomatic. The patient was given script for his hydrocodone and Ambien for 3-month supply. The patient is seen in collaboration with Dr. Jhonny Gu. <ELECTRONICALLY SIGNED> By: Melba Hemphill 06/22/19 0919 [id number] Melba bergeron
== END ==
LOC: PAIN 06:48
DX: M54.16 Radiculopathy, lumbar region (principal); I10 Essential (primary) hypertension; G89.29 Other chronic pain; F11.20 Opioid dependence, uncomplicated; M79.604 Pain in right leg; Z79.84 Long term (current) use of oral hypoglycemic drugs; Z79.899 Other long term (current) drug therapy

== ENCOUNTER → 2019-09-06 | Outpatient (CLI) | payer BC ==
[~2019-09-06] VITALS: Ht 182.9 cm; Wt 92.4 kg
[2019-09-06 10:18] VITALS: BP 152/108
--- NOTE | 2019-09-06 10:39 | NUR ---
Pain Clinic Assessment: 1. History of Osteoarthritis: SPINE History of Rheumatoid Arthritis: DENIES 2. Height: 6 ft. 0 in. 182.9 cm. Weight: 203.8 lb. oz. 92.443 kg. Patient's BMI: 27.6 3. Vital Signs: BP: 152/108 Pulse: 75 Resp: 16 Temp: 02 Sat: 97 ECG Mon: 4. Pain Intensity: 6 5. Fall Risk: Dizziness: N Needs help standing or walking: N Fallen in the last 3 months: N Fall risk comments: 6. Patient on Blood Thinner: None 7. History of Hypertension: Y 8. Opioid Therapy greater than 6 weeks: Y Opiate Contract Signed: 09/19/15 9. Risk Assessment Tool Provided: 4 moderate risk 10. Functional Assessment Tool: 11. Recreational Drug Use: Never Drug Type: Tobacco Use: Never Smoker Tobacco Type: Amount or Packs/day: How Many Years: Alcohol Use: Yes Frequency: Daily Quant: 1-2 IF OUT WITH WORK
--- NOTE | 2019-09-19 15:16 | HPC ---
[facility] [place] [place] [address] PAIN MANAGEMENT CONSULTATION Name: SANA CHAIREZ Room #: REG DORIS John.#: [id number] Admission: 09/06/19 Attend Phys: Lisa Gu MD Discharge: Date of : 62 Report #: [id number] THIS REPORT FOR: cc: Chaz Meade Jr, MD, Jr, Billy B. MD Brown,Lisa Bains MD ~ CC: Chaz Gu DATE OF SERVICE: 09/06/2019 CHIEF COMPLAINT: Low back pain and the right leg. HISTORY: The patient is a 58-year-old gentleman who has been followed in the pain clinic because of chronic back pain. He also has had some pain and discomfort in his knee. He did undergo evaluation of his knee. There was no significant pathology found. He still has some discomfort in the right leg. There is less swelling. Overall, he rates his pain as a 6/10. 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 He states that they are considering having him deploy to [place]. The Covid-19 virus is pandemic. A number of employees in this area have become sick. He is scheduled to travel in that area. He would like to have his medications renewed. ALLERGIES: No known drug allergies. CURRENT MEDICATIONS: Singulair 10 mg at bedtime, Ambien 10 mg, hydrocodone 10/325 one p.o. q. 4-6 hours/Gralise 600 mg with meals, Lipitor 80 mg, alprazolam 0.5 mg b.i.d., and Norvasc. PAIN CLINIC ASSESSMENT AND PQRS: 1. The patient has some osteoarthritis involving his back and in his right knee. He is not being treated for rheumatoid arthritis. 2. Height 6 feet 0, weight 203 pounds, BMI is 27.6. 3. Vital signs: Blood pressure 152/108, pulse 75, respiratory rate 16, room air saturation 97%. 4. Pain intensity /10. 5. Fall history: The patient has not fallen in the last 3 months. 6. Blood thinner. The patient is not on a blood thinning medication. 7. Hypertension. The patient is being treated for hypertension. 8. Opioids greater than 6 weeks. The patient receives medications from one source the pain clinic. 9. Risk assessment tool, moderate for opioid use. 10. Functional assessment tool 35/70. 11. Recreational drug use. The patient denies. 12. Tobacco: The patient has never smoked. 13. 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 [address] [address] PAIN MANAGEMENT CONSULTATION Name: SANA CHAIREZ Room #: REG [facility].#: [id number] Admission: 09/06/19 Attend Phys: Lisa Gu MD Discharge: Date of : 62 Report #: [id number] PHYSICAL EXAMINATION: GENERAL: The patient is a well-developed, well-nourished white male. Appears his stated age. He is alert and oriented x 3. His affect is appropriate. Speech is fluent. HEENT: Normocephalic, atraumatic. Extraocular eye muscles intact. Sclerae nonicteric. Mucous membranes are moist. The patient is wearing a mask. NECK: Without adenopathy or JVD. HEART: Regular rate. ABDOMEN: Nontender. LUNGS: Clear. MUSCULOSKELETAL: The patient without significant scoliosis, kyphosis, or lordosis. The patient does have pain and discomfort that radiates down in the L5-S1 dermatomal distribution and generally involves his right leg, ____ problematic today. IMPRESSION: 1. History of right lower extremity pain improved after epidural steroid injections. 2. History of hypertension. 3. Chronic pain exacerbated by travel to different time zones. 4. Chronic pain helped with use of opioids. RECOMMENDATIONS: We discussed treatment options with the patient. The patient is aware that the opioid medications can become less effective over time. Overall, he feels that these medications are helpful. He does go on long flights from one continent to the other. He is scheduled to go to [place]. He is not too excited about this. The Covid-19 virus is in that area. A number of employees are sick. He is going to back [place]. He will call us if he has any problems with his medications. Hopefully, he does not get Covid-19 infected while he is in [place]. A script for his medications of hydrocodone 10/325 one p.o. q.i.d. has been provided. The patient has also been provided with Zolpidem 10 mg tablets 1 at night for insomnia. <ELECTRONICALLY SIGNED> By: Lisa Gu MD 09/19/19 1516 [id number] Lisa Gu MD /nt
== END ==
LOC: PAIN 08-30 10:33
PROVIDERS: ATTEND Anesthesiology Pain Medicine
DX: M54.5 Low back pain (principal); G89.29 Other chronic pain; F11.20 Opioid dependence, uncomplicated; Z87.39 Personal history of other diseases of the musculoskeletal system and connective tissue

== ENCOUNTER → 2019-12-01 | Outpatient (CLI) | payer BC ==
[~2019-12-01] VITALS: Ht 182.9 cm; Wt 95.3 kg
--- NOTE | ~2019-12-01 | HPC ---
[facility] [place] [address] PAIN MANAGEMENT CONSULTATION Name: SANA CHAIREZ Room #: REG DORIS JohnBoris#: [id number] Admission: 12/01/19 Attend Phys: Lisa Gu MD Discharge: Date of : 62 Report #: [id number] THIS REPORT FOR: cc: Chaz Meade Jr, MD, Jr, Billy B. MD Brown, N. Wayne MD ~ CC: Chaz Gu DATE OF SERVICE: 12/01/2019 CHIEF COMPLAINT: Low back and right leg pain. HISTORY: The patient is a 58-year-old gentleman who has been followed in the Pain Clinic for some time. He suffers from lumbar radicular pain. He has undergone epidural steroid injections in the past. These have been helpful. 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 He is considering leaving the [facility] for a deployment in another country in the near future. He would like to continue with his medications of hydrocodone and finds that these medications have been beneficial. He rates his pain as 7/10 today. Pain involves his low back and radiates down into his right leg. He describes it as chronic. There is an aching, sharp sensation with numbness. Pain is exacerbated with sitting. Long flights really make his pain quite problematic. He notes that sometimes repositioning can be helpful. He has returned today for renewal of his medications. ALLERGIES: No known drug allergies. CURRENT MEDICATIONS: Singulair 10 mg at bedtime, Ambien 10 mg, hydrocodone 10/325 one p.o. every 4-6 hours, Gralise 600 mg with meals, Lipitor 80 mg, alprazolam 0.5 mg b.i.d., and Norvasc. PAIN CLINIC ASSESSMENT AND PQRS: 1. The patient has some osteoarthritic changes involving his back and into his right knee. He is not being treated for rheumatoid arthritis. 2. Height 6 feet, weight 210 pounds, BMI is 28. The patient states that he has gained about 20 pounds because of the pandemic and stayed at home. 3. Vital Signs: Blood pressure 135/85, pulse 68, respiratory rate 20, and room air saturation is 97%. 4. Pain intensity 7/10. 5. Fall history: The patient has not fallen in the last 3 months. 6. Blood thinner. The patient is not on a blood thinning medication. 7. Hypertension. The patient is being treated for hypertension. 8. Opioids greater than 6 weeks. The patient receives medications from the Pain Clinic. 9. Risk assessment tool, moderate risk for opioid use. [address] [address] PAIN MANAGEMENT CONSULTATION Name: SANA CHAIREZ Room #: [facility] [id number] Admission: 12/01/19 Attend Phys: Lisa Gu MD Discharge: Date of : 62 Report #: [id number] 10. Functional assessment tool . 11. Recreational drug use: The patient has never smoked. The patient denies use of recreational drugs. 12. Alcohol. The patient occasionally drinks alcoholic beverages of a beer. PHYSICAL EXAMINATION: GENERAL: The patient is a well-developed, well-nourished white male. Appears his stated age. He is alert and oriented x 3. His affect is appropriate. Speech is fluent. HEENT: Normocephalic, atraumatic. Extraocular eye muscles intact. Sclerae nonicteric. Mucous membranes are moist. The patient is wearing a facial covering. NECK: Without adenopathy or JVD. HEART: Regular rate. ABDOMEN: Nontender. LUNGS: Clear. MUSCULOSKELETAL: The patient has some pain and discomfort in the lower portion of his back. The patient without significant scoliosis, kyphosis or lordosis. Does complain of pain that radiates down in the L5-S1 dermatomal distribution involving his right leg. IMPRESSION: 1. History of right lower extremity pain improved with epidural steroid injections in the past. 2. History of hypertension. 3. Chronic pain exacerbated by travel to different time zones and to foreign soils. 4. Chronic pain, improved with use of opioid medications. RECOMMENDATIONS: We discussed treatment options with the patient. At this juncture, we will continue with his medications. He finds that these medications overall are helpful. He will in the near future go on another venture. A script for his medications has been provided. The patient will continue to use hydrocodone 10/325 one p.o. q.i.d. The patient will also continue with zolpidem at night to help with insomnia. A script for his medications has been provided. He will call us if he has any concerns. We would like to thank you for letting us participate in his care. We hope he continues to improve. By: [id number] Lisa Gu MD /fredi
[2019-12-01 09:01] VITALS: BP 135/85
--- NOTE | 2019-12-01 09:28 | NUR ---
Pain Clinic Assessment: 1. History of Osteoarthritis: SPINE History of Rheumatoid Arthritis: DENIES 2. Height: 6 ft. 0 in. 182.9 cm. Weight: 210.0 lb. oz. 95.256 kg. Patient's BMI: 28.5 3. Vital Signs: BP: 135/85 Pulse: 68 Resp: 20 Temp: 02 Sat: 97 ECG Mon: 4. Pain Intensity: 7 5. Fall Risk: Dizziness: N Needs help standing or walking: N Fallen in the last 3 months: N Fall risk comments: 6. Patient on Blood Thinner: None 7. History of Hypertension: Y 8. Opioid Therapy greater than 6 weeks: Y Opiate Contract Signed: 09/19/15 9. Risk Assessment Tool Provided: 4 moderate risk 10. Functional Assessment Tool: 11. Recreational Drug Use: Never Drug Type: Tobacco Use: Never Smoker Tobacco Type: Amount or Packs/day: How Many Years: Alcohol Use: Yes Frequency: Daily Quant: beer
== END ==
LOC: PAIN 06:54
PROVIDERS: ATTEND Anesthesiology Pain Medicine
DX: M17.11 Unilateral primary osteoarthritis, right knee (principal); M47.819 Spondylosis without myelopathy or radiculopathy, site unspecified; M54.5 Low back pain; I10 Essential (primary) hypertension; F11.90 Opioid use, unspecified, uncomplicated

== ENCOUNTER → 2020-03-06 | Outpatient (CLI) | payer BC ==
[~2020-03-06] VITALS: Ht 182.9 cm; Wt 91.3 kg
[2020-03-06 10:01] VITALS: BP 132/84
--- NOTE | 2020-03-06 10:33 | NUR ---
Pain Clinic Assessment: 1. History of Osteoarthritis: SPINE History of Rheumatoid Arthritis: DENIES 2. Height: 6 ft. 0 in. 182.9 cm. Weight: 201.2 lb. oz. 91.264 kg. Patient's BMI: 27.3 3. Vital Signs: BP: 132/84 Pulse: 72 Resp: 20 Temp: 02 Sat: 100 ECG Mon: 4. Pain Intensity: 5 5. Fall Risk: Dizziness: N Needs help standing or walking: N Fallen in the last 3 months: N Fall risk comments: 6. Patient on Blood Thinner: None 7. History of Hypertension: Y 8. Opioid Therapy greater than 6 weeks: Y Opiate Contract Signed: 09/19/15 9. Risk Assessment Tool Provided: 4 moderate risk 10. Functional Assessment Tool: 11. Recreational Drug Use: Never Drug Type: Tobacco Use: Never Smoker Tobacco Type: Amount or Packs/day: How Many Years: Alcohol Use: Yes Frequency: Quant:
== END ==
LOC: PAIN 06:48
PROVIDERS: ATTEND Anesthesiology Pain Medicine
DX: M54.5 Low back pain (principal); G89.29 Other chronic pain; I10 Essential (primary) hypertension; Z79.899 Other long term (current) drug therapy; Z79.891 Long term (current) use of opiate analgesic; Z72.89 Other problems related to lifestyle

== ENCOUNTER → 2020-06-19 | Outpatient (CLI) | payer OTHER ==
[~2020-06-19] VITALS: Ht 182.9 cm; Wt 94.4 kg
[2020-06-19 11:00] VITALS: BP 154/97
--- NOTE | 2020-06-19 11:38 | NUR ---
Pain Clinic Assessment: 1. History of Osteoarthritis: SPINE History of Rheumatoid Arthritis: DENIES 2. Height: 6 ft. 0 in. 182.9 cm. Weight: 208.2 lb. oz. 94.439 kg. Patient's BMI: 28.2 3. Vital Signs: BP: 154/97 Pulse: 76 Resp: 20 Temp: 02 Sat: 97 ECG Mon: 4. Pain Intensity: 6 TO 7 5. Fall Risk: Dizziness: N Needs help standing or walking: N Fallen in the last 3 months: N Fall risk comments: 6. Patient on Blood Thinner: None 7. History of Hypertension: Y 8. Opioid Therapy greater than 6 weeks: Y Opiate Contract Signed: 09/19/15 9. Risk Assessment Tool Provided: 4 moderate risk 10. Functional Assessment Tool: 11. Recreational Drug Use: Never Drug Type: Tobacco Use: Never Smoker Tobacco Type: Amount or Packs/day: How Many Years: Alcohol Use: Yes Frequency: Daily Quant: 1 TO 2
== END ==
LOC: PAIN 06:55
PROVIDERS: ATTEND Anesthesiology Pain Medicine
DX: G89.29 Other chronic pain (principal); M54.5 Low back pain; F11.20 Opioid dependence, uncomplicated; Z87.39 Personal history of other diseases of the musculoskeletal system and connective tissue

== ENCOUNTER → 2020-09-20 | Outpatient (CLI) | payer OTHER ==
[~2020-09-20] VITALS: Ht 182.9 cm; Wt 92.3 kg
[2020-09-20 08:56] VITALS: BP 137/100
--- NOTE | 2020-09-20 09:09 | NUR ---
Pain Clinic Assessment: 1. History of Osteoarthritis: SPINE History of Rheumatoid Arthritis: DENIES 2. Height: 6 ft. 0 in. 182.9 cm. Weight: 203.4 lb. oz. 92.262 kg. Patient's BMI: 27.6 3. Vital Signs: BP: 137/100 Pulse: 76 Resp: 18 Temp: 02 Sat: 98 ECG Mon: 4. Pain Intensity: 8 5. Fall Risk: Dizziness: Y Needs help standing or walking: N Fallen in the last 3 months: N Fall risk comments: 6. Patient on Blood Thinner: None 7. History of Hypertension: Y 8. Opioid Therapy greater than 6 weeks: Y Opiate Contract Signed: 09/19/15 9. Risk Assessment Tool Provided: 4 moderate risk 10. Functional Assessment Tool: 11. Recreational Drug Use: Never Drug Type: Tobacco Use: Never Smoker Tobacco Type: Amount or Packs/day: How Many Years: Alcohol Use: Yes Frequency: Weekly Quant: 4 TO 5 TOTAL
== END ==
LOC: PAIN 06:56
PROVIDERS: ATTEND Anesthesiology Pain Medicine
DX: M79.661 Pain in right lower leg (principal); I10 Essential (primary) hypertension; G89.29 Other chronic pain; Z79.891 Long term (current) use of opiate analgesic; Z72.89 Other problems related to lifestyle; Z79.899 Other long term (current) drug therapy

== ENCOUNTER → 2020-12-20 | Outpatient (CLI) | payer OTHER ==
[~2020-12-20] VITALS: Ht 182.9 cm; Wt 98.4 kg
[2020-12-20 08:33] VITALS: BP 154/89
--- NOTE | 2020-12-20 08:38 | NUR ---
Pain Clinic Assessment: 1. History of Osteoarthritis: SPINE History of Rheumatoid Arthritis: DENIES 2. Height: 6 ft. 0 in. 182.9 cm. Weight: 217.0 lb. oz. 98.431 kg. Patient's BMI: 29.4 3. Vital Signs: BP: 154/89 Pulse: 72 Resp: 16 Temp: 02 Sat: 96 ECG Mon: 4. Pain Intensity: 8 5. Fall Risk: Dizziness: N Needs help standing or walking: N Fallen in the last 3 months: N Fall risk comments: 6. Patient on Blood Thinner: None 7. History of Hypertension: Y 8. Opioid Therapy greater than 6 weeks: Y Opiate Contract Signed: 09/19/15 9. Risk Assessment Tool Provided: 4 moderate risk 10. Functional Assessment Tool: 11. Recreational Drug Use: Never Drug Type: Tobacco Use: Never Smoker Tobacco Type: Amount or Packs/day: How Many Years: Alcohol Use: Yes Frequency: Quant:
== END ==
LOC: PAIN 06:48
PROVIDERS: ATTEND Anesthesiology Pain Medicine
DX: G89.29 Other chronic pain (principal); M54.5 Low back pain; M79.604 Pain in right leg; I10 Essential (primary) hypertension; Z79.899 Other long term (current) drug therapy

== ENCOUNTER → 2021-03-12 | Outpatient (CLI) | payer OTHER ==
[~2021-03-12] VITALS: Ht 182.9 cm; Wt 97.6 kg
[2021-03-12 09:24] VITALS: BP 142/89
--- NOTE | 2021-03-12 09:45 | NUR ---
Pain Clinic Assessment: 1. History of Osteoarthritis: SPINE History of Rheumatoid Arthritis: DENIES 2. Height: 6 ft. 0 in. 182.9 cm. Weight: 215.2 lb. oz. 97.614 kg. Patient's BMI: 29.2 3. Vital Signs: BP: 142/89 Pulse: 77 Resp: 14 Temp: 02 Sat: 97 ECG Mon: 4. Pain Intensity: 7 5. Fall Risk: Dizziness: N Needs help standing or walking: N Fallen in the last 3 months: N Fall risk comments: 6. Patient on Blood Thinner: None 7. History of Hypertension: Y 8. Opioid Therapy greater than 6 weeks: Y Opiate Contract Signed: 09/19/15 9. Risk Assessment Tool Provided: 4 moderate risk 10. Functional Assessment Tool: 11. Recreational Drug Use: Never Drug Type: Tobacco Use: Never Smoker Tobacco Type: Amount or Packs/day: How Many Years: Alcohol Use: Yes Frequency: Weekly Quant: 3
== END ==
LOC: PAIN 07:32
PROVIDERS: ATTEND Clinical Nurse Specialist Adult Health
DX: G89.29 Other chronic pain (principal); M54.16 Radiculopathy, lumbar region; I10 Essential (primary) hypertension; Z88.8 Allergy status to other drugs, medicaments and biological substances; Z79.899 Other long term (current) drug therapy